=== PATIENT | male | born 1950 | race Caucasian/White ===

== ENCOUNTER → 2017-05-28 15:38 | Outpatient (CLI) | payer MEDICARE, BC ==
[~2017-05-28 15:38] MED LIST: ASPIRIN EC81 M1 PO; ATIVAN0.5 MG PO; ELIQUIS2.5 MG PO; HYDROCHLOROTH12.5 M1 PO; LIPITOR20 MG PO; MULTI-DAY VITAM1 TAB PO; PERCOCET 10/3251 TA1 PO
[2017-07-14 14:47] VITALS: BMI 32.3
== END | disposition home or self-care (01) ==
LOC: D.LABREF 15:38
DX: M25.551 Pain in right hip (principal); Z11.8 Encounter for screening for other infectious and parasitic diseases

== ENCOUNTER 2017-07-09 10:00 | Inpatient (IN) | payer MEDICARE, BC ==
[~2017-07-09] VITALS: Ht 167.6 cm; Wt 90.9 kg
--- NOTE | ~2017-07-09 | OP ---
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 PROCEDURE: Right total hip arthroplasty. SURGEON: Tae Malhotra MD ANESTHESIA: General. INTRAOPERATIVE COMPLICATIONS: None. SUMMARY OF PATHOLOGIC FINDINGS: Severe extensive degenerative arthritis of the right hip consistent with the preoperative radiographs and diagnosis. OPERATIVE SUMMARY IN DETAIL: After obtaining the appropriate preoperative orthopedic surgery consent as well as anesthetic consultation, evaluation and clearance, the patient was brought to the operating room and placed in the operating table in supine position. After general laryngeal mask airway was administered, the patient was placed in a left lateral decubitus position. All pressure points were well padded to include down leg peroneal pad as well as axillary roll. The patient was held firmly to the operating table using the vacuum pack suction system. Right lower extremity and hip were then prepped and draped in a routine sterile fashion. Curvilinear incision was made over the greater trochanter, taken down to the IT band, which was split in line with fibers of the IT band to reveal the gluteus medius and minimus. These were reflected anteriorly. The anterior inferior aspect of these were reflected anteriorly. The hip capsule was then split in a T-type fashion. The hip was dislocated and femoral neck cut was made using the femoral neck cutting guide and the acetabulum was approached. Circumferential labrectomy was followed by serial and sequential reaming to a 53 for a 54 cup. This was put into place with excellent capture. Polyethylene liner was put into place. Attention was then turned to the proximal femur. Serial and sequential reaming and broaching were done for a size 5 Accolade TMZF II stem. This was tamped into place and trials were undertaken. The Biolox -2.5 head was the most appropriate for leg length. This was tamped into place with Carlos taper. The hip was reduced. Intraoperative radiograph showed good position and placement of all components with good rotation of leg lengths. Having completed this, the wound was copiously irrigated and then Vitagel from [facility] was then placed into the wound cavity. The hip capsule was closed with #2 Ethibond. This was followed by #5 Ethibond reapproximation of gluteus medius minimus in a transosseous fashion back to the greater trochanter. IT band was closed with #2 Ethibond followed by #1 Vicryl, 2-0 Vicryl and skin juan a. Sterile dressings were applied. The patient was awakened, taken to the recovery room in stable condition. All final needle and sponge counts were correct. TRANSINT:[id number] Voice Confirmation ID: [id number] DOCUMENT ID: [id number] OPERATIVE REPORT [id number] PRISCILLA ALEXANDER MD, TAE FLORES at 1657 CC: [id number] DICTATION DATE: 07/14/17 1212 RECEIVING SPECIALIST: 07/14/17 1237 ADM IN [place] [id number] [place] [address]
[~2017-07-09 10:00] MED LIST changes: -ELIQUIS2.5 MG PO; -PERCOCET 10/3251 TA1 PO
[2017-07-09 11:55] LABS: BASOPHILS 0.3 % (0-2); EOSINOPHILS 3.9 % (0-7); HEMATOCRIT 41.7 % (42.0-54.0); HEMOGLOBIN 14.4 g/dL (13.5-17.5); IMMATURE GRANULOCYTES 0.3 % (0-5); LYMPHOCYTES 26.6 % (15-50); MCH 32.3 pg (26.0-34.0); MCHC 34.5 g/dL (31.0-37.0); MCV 93.5 fL (80.0-100.0); MEAN PLATELET VOLUME 10.2 fL (7.4-10.4); MONOCYTES 9.3 % (2-11); NEUTROPHILS 59.6 % (40-80); PLATELET COUNT 217 10x3/uL (130-400); RBC 4.46 10x6/uL (4.20-6.10); RDW 12.6 % (11.5-14.5); WBC 6.9 10x3/uL (4.8-10.8)
[2017-07-09 12:02] LABS: CALC OSMOLALITY 275 mosm/kg (275-300); CALCIUM 9.5 mg/dL (8.5-10.1); CARBON DIOXIDE 29.9 mmol/L (21.0-32.0); CHLORIDE - SERUM 99 mmol/L (98-107); CREATININE - SERUM 0.9 mg/dL (0.6-1.3); GLUCOSE 100 mg/dL (74-106); POTASSIUM - SERUM 4.4 mmol/L (3.5-5.1); SODIUM 137 mmol/L (136-145); UREA NITROGEN 19 mg/dL (7-18); eGFR NON AFRICAN AMERICAN 89 mL/min (90-120)
[2017-07-09 12:07] LABS: APTT 24.7 SECONDS (22.8-39.4); INR 0.93 (0.85-1.17); PROTIME 12.1 SECONDS (11.6-15.0)
[2017-07-09 12:08] LABS: APPEARANCE CLEAR (CLEAR); BILIRUBIN NEGATIVE (NEGATIVE); COLOR YELLOW (YELLOW); GLUCOSE NEGATIVE (NEGATIVE); KETONE NEGATIVE (NEGATIVE); NITRITE NEGATIVE (NEGATIVE); PROTEIN NEGATIVE (NEGATIVE); SPECIFIC GRAVITY 1.005 (1.005-1.020); UROBILINOGEN NORMAL (NORMAL)
[2017-07-14 08:11] VITALS: BP 162/80; BMI 32.3
[2017-07-14 13:31] VITALS: BP 123/87
[2017-07-14 14:47] VITALS: BP 148/78; Ht 167.6 cm; Wt 90.9 kg
[2017-07-14 15:44] VITALS: BP 141/79
[2017-07-14 19:00] VITALS: BP 134/69
[2017-07-15 04:00] VITALS: BP 140/68
[2017-07-15 05:18] LABS: HEMATOCRIT 35.4 % (42.0-54.0); HEMOGLOBIN 12.1 g/dL (13.5-17.5); MCH 32.2 pg (26.0-34.0); MCHC 34.2 g/dL (31.0-37.0); MCV 94.1 fL (80.0-100.0); MEAN PLATELET VOLUME 9.7 fL (7.4-10.4); RBC 3.76 10x6/uL (4.20-6.10); RDW 12.5 % (11.5-14.5); WBC 8.4 10x3/uL (4.8-10.8)
[2017-07-15 08:45] VITALS: BP 129/81
[2017-07-15 12:16] VITALS: BP 140/67
[2017-07-15 16:19] VITALS: BP 136/59
[2017-07-16 02:00] VITALS: BP 133/69
[2017-07-16 04:00] VITALS: BP 141/64
[2017-07-16 06:34] LABS: HEMOGLOBIN 11.1 g/dL (13.5-17.5); MCH 31.6 pg (26.0-34.0); MCHC 32.6 g/dL (31.0-37.0); MEAN PLATELET VOLUME 10.4 fL (7.4-10.4); RBC 3.51 10x6/uL (4.20-6.10); RDW 12.9 % (11.5-14.5); WBC 10.4 10x3/uL (4.8-10.8)
[2017-07-16 06:50] LABS: MCV 96.9 fL (80.0-100.0)
[2017-07-16] MEDS ORDERED: ELIQUIS2.5 MG PO (07:52)
[2017-07-16] MEDS ORDERED: PERCOCET 10/3251 TA1 PO (07:52)
[2017-07-16 10:57] VITALS: BP 118/69
== END 2017-07-16 14:22 | disposition home or self-care (01) | DRG 470 ==
LOC: D.SDCHOLD 10:00 → D.MS 07-14 06:36 → D.SDCHOLD 07-14 09:00 → D.MS 07-14 13:30
PROVIDERS: Orthopaedic Surgery
PROC: 0SR90JZ Replacement of Right Hip Joint with Synthetic Substitute, Open Approach (ICD-10-PCS; principal; 2017-07-14 09:30)
DX: M16.51 Unilateral post-traumatic osteoarthritis, right hip (principal); T14.90XS Injury, unspecified, sequela; X58.XXXS Exposure to other specified factors, sequela; I10 Essential (primary) hypertension